=== PATIENT | female | born 1950 | race Caucasian/White ===

== ENCOUNTER 2018-08-14 07:28 | Day surgery (SDC) | payer MEDICARE, BC ==
[~2018-08-14] VITALS: Ht 144.8 cm; Wt 83.1 kg
[2018-08-14 08:18] VITALS: BP 144/82
[2018-08-14] MEDS ORDERED: LACTATED RINGERS 1,000 ML IV SCH (08:20)
[2018-08-14] MEDS ORDERED: PLEASE ENTER ALLERGIES MC SCH (08:30)
[2018-08-14] MEDS ORDERED: PRAV20TA2 PO (08:33)
[2018-08-14] MEDS ORDERED: SALM50DI INH (08:33)
[2018-08-14] MEDS ORDERED: DIPH1TAB6 PO (08:33)
[2018-08-14] MEDS ORDERED: CLON1TAB11 PO (08:33)
[2018-08-14] MEDS ORDERED: ACET-76 PO (08:33)
[2018-08-14] MEDS ORDERED: FEXO180T15 PO (08:33)
[2018-08-14] MEDS ORDERED: CHOL100015 PO (08:33)
[2018-08-14] MEDS ORDERED: AZEL6DRO2 EACHEYE (08:33)
[2018-08-14] MEDS ORDERED: UBID100T5 PO (08:33)
[2018-08-14] MEDS ORDERED: METH500T7 PO (08:33)
[2018-08-14] MEDS ORDERED: EXEN5PEN2 SQ (08:33)
[2018-08-14] MEDS ORDERED: PROP1DRO6 OP (08:33)
[2018-08-14] MEDS ORDERED: INSU100I34 SQ (08:33)
[2018-08-14] MEDS ORDERED: [UNRECOGNIZED DRUG - CODE] INH (08:33)
[2018-08-14] MEDS ORDERED: NITR0.4T28 SL (08:33)
[2018-08-14] MEDS ORDERED: AZEL137S4 NAS (08:33)
[2018-08-14] MEDS ORDERED: DILT60CA PO (08:33)
[2018-08-14] MEDS ORDERED: LEVA15HF4 INH (08:33)
[2018-08-14] MEDS ORDERED: GABA100C PO (08:33)
[2018-08-14] MEDS ORDERED: CYAN2000 PO (08:33)
[2018-08-14] MEDS ORDERED: MONT10TA9 PO (08:33)
[2018-08-14] MEDS ORDERED: FENTANYL PF 250 MCG/5ML ONE (08:50)
[2018-08-14] MEDS ORDERED: PHENYLEPHRINE 10 MG/ML ONE (08:53)
[2018-08-14] MEDS ORDERED: ONDANSETRON 2MG/ML, 2ML IV PRN (09:30)
[2018-08-14] MEDS ORDERED: PROMETHAZINE 25 MG/ML, 1ML IV PRN (09:30)
[2018-08-14] MEDS ORDERED: ONDANSETRON ODT 8 MG PO PRN (09:30)
[2018-08-14] MEDS ORDERED: FENTANYL PF 100 MCG/2ML IV PRN (09:30)
[2018-08-14] MEDS ORDERED: LORazepam 2 MG/ML, 1ML IVPush PRN (09:30)
[2018-08-14] MEDS ORDERED: ACETAMINOPHEN 325 MG TABLET PO PRN (09:30)
[2018-08-14] MEDS ORDERED: HYDROmorphone 2 MG/ML, 1ML IVPush PRN (09:30)
[2018-08-14] MEDS ORDERED: DEXAMETHASONE 4 MG/ML, 1ML ONE (09:31)
[2018-08-14] MEDS ORDERED: PROPOFOL 10 MG/ML, 20ML ONE (09:31)
[2018-08-14] MEDS ORDERED: ONDANSETRON 2MG/ML, 2ML ONE (09:31)
[2018-08-14] MEDS ORDERED: CEFAZOLIN 1,000 MG ONE (09:31)
[2018-08-14] MEDS ORDERED: ACETAMINOPHEN 325 MG TABLET ONE (10:54)
== END 2018-08-14 12:55 | disposition home or self-care (01) ==
LOC: OUT 07:28
PROVIDERS: ATTEND Urology
DX: N20.0 Calculus of kidney (principal); F41.9 Anxiety disorder, unspecified; J45.909 Unspecified asthma, uncomplicated; E11.9 Type 2 diabetes mellitus without complications; Z79.899 Other long term (current) drug therapy; Z87.440 Personal history of urinary (tract) infections; Z98.890 Other specified postprocedural states; Z79.82 Long term (current) use of aspirin; Z79.4 Long term (current) use of insulin
CPT/HCPCS: 52356; 74018; 76000; 82962; C1769; C2617; J0690; J1100; J2370; J2405; J2704; J3010; J7120